=== PATIENT | female | born 1950 | race Caucasian/White ===

== ENCOUNTER → 2017-12-18 | Outpatient (CLI) | payer OTHER ==
[~2017-12-18] MED LIST: BNC40; [UNRECOGNIZED DRUG - OTHER]
[2017-12-18 13:50] LABS: BASO % 0.3 %; BASO ABS # 0.02 K/uL (0-0.2); EOS % 1.7 %; HEMATOCRIT 40.3 % (37-47); HEMOGLOBIN 13.5 g/dL (12.0-16.0); IG# 0.01 K/uL (0.00-0.02); LYMPH % 31.7 %; LYMPH ABS # 1.87 K/uL (1.2-3.4); MEAN CORPUSCULAR HEMOGLOBIN 29.5 pg (25-34); MEAN CORPUSCULAR HGB CONC 33.5 g/dl (32-36); MEAN PLATELET VOLUME 9.5 fL (7.4-10.4); MONO % 8.3 %; MONO ABS # 0.49 K/uL (0.11-0.59); NEUT % 57.8 %; PLATELET COUNT 251 K/uL (130-400); RED CELL DISTRIBUTION WIDTH CV 13.9 % (11.5-14.5); RED CELL DISTRIBUTION WIDTH SD 44.7 fL (36.4-46.3); WHITE BLOOD COUNT 5.89 K/uL (4.8-10.8)
[2017-12-18 14:27] LABS: ALBUMIN 3.5 gm/dl (3.4-5.0); ALT/SGPT 21 U/L (12-78); BLOOD UREA NITROGEN 17 mg/dl (7-18); CALCIUM 9.2 mg/dl (8.5-10.1); CARBON DIOXIDE 26 mmol/L (21-32); CHOLESTEROL 172 mg/dl (0-200); GLUCOSE 98 mg/dl (70-99); SODIUM 138 mmol/L (136-145)
[2017-12-18 14:35] LABS: ALKALINE PHOSPHATASE 57 U/L (45-117); AST/SGOT 16 U/L (15-37); LDL CHOLESTEROL CALCULATED 88 mg/dl; TOTAL PROTEIN 7.7 gm/dl (6.4-8.2)
== END | disposition home or self-care (01) ==
LOC: C.LABBC 09:57
PROVIDERS: ATTEND Nurse Practitioner Family
DX: I10 Essential (primary) hypertension (principal); Z13.1 Encounter for screening for diabetes mellitus; Z13.220 Encounter for screening for lipoid disorders; E04.1 Nontoxic single thyroid nodule

== ENCOUNTER → 2017-12-27 | Outpatient (CLI) | payer OTHER ==
--- NOTE | 2017-12-27 08:33 | DIAGNOSTIC IMAGING REPORT ---
SOFT TISS HEAD/NECK-THYROID CLINICAL HISTORY: 67 years-old Female presenting with E04.1 Thyroid [id number]. TECHNIQUE: Real-time grayscale and color Doppler ultrasound imaging of the thyroid and base of the neck was performed. COMPARISON: None. FINDINGS: Right lobe: Heterogeneous parenchyma. The right lobe of the thyroid measures 6.7 x 2.7 x 2.6 cm. No parenchymal hyperemia. Nodules enumerated below: 1. Peripherally calcified lower pole nodule measuring 2.3 x 1.7 x 1.9 cm. Left lobe: Heterogeneous parenchyma. The left lobe of the thyroid measures 6.5 x 2.4 x 2.1 cm. No parenchymal hyperemia. Nodules enumerated below: 1. Subcentimeter cyst noted. Isthmus: The isthmus measures 9 mm in thickness. No parenchymal hyperemia. No nodules. IMPRESSION: Multinodular thyroid. Dominant peripherally calcified lower pole nodule in the right lobe. Continued surveillance could be considered. This nodule may be difficult to biopsy given the degree of peripheral calcification. Electronically signed by: Francisco Spicer M.D. 12/27/2017 8:32 AM Dictated Date/Time: 12/27/2017 8:28 AM
== END | disposition home or self-care (01) ==
LOC: C.ULTRBC 07:28
PROVIDERS: ATTEND Nurse Practitioner Family
DX: E04.2 Nontoxic multinodular goiter (principal)